=== PATIENT | female | born 1950 | race Caucasian/White ===

== ENCOUNTER → 2023-07-04 09:24 | Outpatient (REF) | payer MEDICARE, OTHER, SELFPAY ==
[2023-07-04 10:13] LABS: % Basophils 0.4 % (0-2); % Eosinophils 2.5 % (0-6); % Immature Granulocytes 0.3 % (0-0.5); % Lymphocytes 28.5 % (20.5-51.1); % Monocytes 6.4 % (1.7-9.3); % Neutrophils 61.9 % (42.2-75.2); Absolute Eosinophils 0.2 10^3/uL (0-0.7); Absolute Monocytes 0.4 10^3/uL (0.1-0.6); Absolute Neutrophils 4.2 10^3/uL (1.4-6.5); Hematocrit 40.7 % (37.0-47.0); Hemoglobin 13.8 g/dL (12.0-16.0); Mean Corp Hgb Conc. 33.9 g/dL (33.0-37.0); Mean Corpuscular Hgb 31.2 pg (27.0-31.0); Mean Corpuscular Volume 92.1 fL (81.0-99.0); Mean Platelet Volume 9.1 fL (7.4-10.4); Nucleated Red Blood Cells % 0 %; Platelet Count 354 10^3/uL (130-400); Red Blood Cell Count 4.42 10^6/uL (4.20-5.40); Red Cell Dist. Width 14.5 % (11.5-14.5); White Blood Cell Count 6.8 10^3/uL (4.8-10.8)
[2023-07-04 10:26] LABS: Urine Albumin Negative (Neg - Trace); Urine Bilirubin Negative (Negative); Urine Character Clear (Clear); Urine Color Yellow; Urine Glucose Negative (Negative); Urine Ketone Negative (Negative); Urine Leukocyte Negative (Negative); Urine Nitrite Negative (Negative); Urine Occult Blood Negative (Negative); Urine Specific Gravity 1.005 (<1.030); Urine Urobilinogen Negative (Neg - 1+)
[2023-07-04 11:04] LABS: Microalbumin, Random Urine <0.6 mg/dl (0.6-1.7)
[2023-07-04 11:54] LABS: ALT (SGPT) 23 U/L (0-35); AST (SGOT) 33 U/L (14-36); Albumin 4.6 g/dl (3.5-5.0); Alkaline Phosphatase 85 U/L (38-126); Blood Urea Nitrogen 14 mg/dl (7-17); Calcium 9.5 mg/dl (8.4-10.2); Carbon Dioxide 29 mmol/L (22-30); Chloride 105 mmol/L (98-107); Glucose 112 mg/dl (70-99); HDL Cholesterol 93 mg/dl; LDL Cholesterol, Calculated 197 mg/dl; Magnesium 2.5 mg/dl (1.6-2.3); Phosphorus 4.2 mg/dl (2.5-4.5); Potassium 4.6 mmol/L (3.5-5.1); Sodium 138 mmol/L (135-145); Total Bilirubin 0.7 mg/dl (0.2-1.3); Total Cholesterol 311 mg/dl (50-199); Total Protein 7.3 g/dl (6.3-8.2); Triglyceride 109 mg/dl (10-149); Uric Acid 5.5 mg/dl (2.5-6.2); Very Low Density Lipoprotein 21 mg/dl (0-30); eGFR > 60.00
[2023-07-04 12:10] LABS: Free T4 1.71 ng/dl (0.78-2.19)
[2023-07-04 12:24] LABS: TSH 1.84 uIU/ml (0.47-4.68)
[2023-07-04 12:25] LABS: Vitamin D, 25-OH*** 26.3 ng/mL (30-80)
[2023-07-04 12:31] LABS: Glycohemoglobin (HgbA1c) 6.4 % (4.0-5.6)
[2023-07-04 13:00] LABS: Folate > 20.0 ng/ml (2.76-20); Vitamin B12 504 pg/ml (239-931)
[2023-07-06 01:36] LABS: Fructosamine 288 umol/L (205-285)
== END ==
LOC: REG 09:24
PROVIDERS: ATTENDING PHYSICIAN Internal Medicine Endocrinology, Diabetes & Metabolism; FAMILY PHYSICIAN Family Medicine
DX: E11.65 Type 2 diabetes mellitus with hyperglycemia (principal); E78.2 Mixed hyperlipidemia; I10 Essential (primary) hypertension; E55.9 Vitamin D deficiency, unspecified; D17.9 Benign lipomatous neoplasm, unspecified
CPT/HCPCS: 36415; 80053; 80061; 81003; 82043; 82306; 82570; 82607; 82746; 82985; 83036; 83735; 84100; 84436; 84439; 84443; 84550; 85025

== ENCOUNTER → 2024-02-08 07:56 | Outpatient (REF) | payer MEDICARE, OTHER, SELFPAY ==
[2024-02-08 09:26] LABS: % Basophils 0.3 % (0-2); % Eosinophils 3.8 % (0-6); % Immature Granulocytes 0.2 % (0-0.5); % Lymphocytes 33.6 % (20.5-51.1); % Monocytes 6.9 % (1.7-9.3); % Neutrophils 55.2 % (42.2-75.2); Absolute Eosinophils 0.2 10^3/uL (0-0.7); Absolute Monocytes 0.4 10^3/uL (0.1-0.6); Absolute Neutrophils 3.4 10^3/uL (1.4-6.5); Hematocrit 37.9 % (37.0-47.0); Hemoglobin 12.5 g/dL (12.0-16.0); Mean Corpuscular Hgb 29.8 pg (27.0-31.0); Mean Corpuscular Volume 90.2 fL (81.0-99.0); Mean Platelet Volume 9.5 fL (7.4-10.4); Nucleated Red Blood Cells % 0 %; Platelet Count 307 10^3/uL (130-400); Red Cell Dist. Width 13.8 % (11.5-14.5); White Blood Cell Count 6.1 10^3/uL (4.8-10.8)
[2024-02-08 09:50] LABS: Urine Albumin Negative (Neg - Trace); Urine Bilirubin Negative (Negative); Urine Character Clear (Clear); Urine Color Straw; Urine Glucose Negative (Negative); Urine Ketone Negative (Negative); Urine Leukocyte Negative (Negative); Urine Nitrite Negative (Negative); Urine Occult Blood Negative (Negative); Urine Specific Gravity 1.005 (<1.030); Urine Urobilinogen Negative (Neg - 1+); Urine pH 6.5 (5.0-9.0)
[2024-02-08 10:07] LABS: ALT (SGPT) 20 U/L (0-35); AST (SGOT) 32 U/L (14-36); Albumin 4.5 g/dl (3.5-5.0); Alkaline Phosphatase 69 U/L (38-126); Blood Urea Nitrogen 18 mg/dl (7-17); Calcium 9.5 mg/dl (8.4-10.2); Carbon Dioxide 28 mmol/L (22-30); Chloride 104 mmol/L (98-107); Free T4 1.37 ng/dl (0.78-2.19); Glucose 104 mg/dl (70-99); HDL Cholesterol 100 mg/dl; LDL Cholesterol, Calculated 66 mg/dl; Magnesium 2.4 mg/dl (1.6-2.3); Phosphorus 3.9 mg/dl (2.5-4.5); Sodium 143 mmol/L (135-145); Total Bilirubin 0.3 mg/dl (0.2-1.3); Total Cholesterol 180 mg/dl (50-199); Total Protein 6.9 g/dl (6.3-8.2); Total Thyroxine 9.66 ug/dl (5.5-11.0); Triglyceride 70 mg/dl (10-149); Uric Acid 3.2 mg/dl (2.5-6.2); Very Low Density Lipoprotein 14 mg/dl (0-30); Vitamin D, 25-OH*** 42.1 ng/mL (30-80); eGFR > 60.00
[2024-02-08 10:13] LABS: TSH 1.08 uIU/ml (0.47-4.68)
[2024-02-08 10:33] LABS: Microalbumin, Random Urine <0.6 mg/dl (0.6-1.7)
[2024-02-08 10:56] LABS: Folate > 20.0 ng/ml (2.76-20); Vitamin B12 451 pg/ml (239-931)
[2024-02-08 11:05] LABS: Glycohemoglobin (HgbA1c) 6.2 % (4.0-5.6)
[2024-02-09 14:55] LABS: Intact PTH 34.8 pg/ml (13.6-85.8)
[2024-02-11 06:49] LABS: Fructosamine 259 umol/L (205-285)
== END ==
LOC: REG 07:56
PROVIDERS: ATTENDING PHYSICIAN Internal Medicine Endocrinology, Diabetes & Metabolism; FAMILY PHYSICIAN Family Medicine
DX: E55.9 Vitamin D deficiency, unspecified (principal); D51.9 Vitamin B12 deficiency anemia, unspecified; E78.2 Mixed hyperlipidemia; E06.3 Autoimmune thyroiditis; E11.65 Type 2 diabetes mellitus with hyperglycemia; E23.0 Hypopituitarism; E21.0 Primary hyperparathyroidism
CPT/HCPCS: 36415; 80053; 80061; 81003; 82043; 82306; 82570; 82607; 82746; 82985; 83036; 83735; 83970; 84100; 84436; 84439; 84443; 84550; 85025

== ENCOUNTER → 2024-02-20 13:00 | Outpatient (REF) | payer MEDICARE, OTHER, SELFPAY | LOC: HWRAD 13:00 | PROVIDERS: ATTENDING PHYSICIAN Internal Medicine Endocrinology, Diabetes & Metabolism; FAMILY PHYSICIAN Family Medicine | DX: E78.5 Hyperlipidemia, unspecified (principal) | CPT/HCPCS: 75571 ==

== ENCOUNTER → 2024-08-12 08:53 | Outpatient (REF) | payer MEDICARE, OTHER, SELFPAY ==
[2024-08-12 10:04] LABS: % Basophils 0.2 % (0-2); % Eosinophils 0.6 % (0-6); % Immature Granulocytes 0.4 % (0-0.5); % Lymphocytes 17.4 % (20.5-51.1); % Monocytes 6.9 % (1.7-9.3); % Neutrophils 74.5 % (42.2-75.2); Absolute Eosinophils 0.1 10^3/uL (0-0.7); Absolute Lymphocytes 1.6 10^3/uL (1.2-3.4); Absolute Monocytes 0.6 10^3/uL (0.1-0.6); Absolute Neutrophils 6.7 10^3/uL (1.4-6.5); Mean Corp Hgb Conc. 33.3 g/dL (33.0-37.0); Mean Corpuscular Hgb 30.8 pg (27.0-31.0); Mean Corpuscular Volume 92.5 fL (81.0-99.0); Mean Platelet Volume 9.3 fL (7.4-10.4); Nucleated Red Blood Cells % 0 %; Platelet Count 310 10^3/uL (130-400); Red Blood Cell Count 4.54 10^6/uL (4.20-5.40); Red Cell Dist. Width 14.2 % (11.5-14.5)
[2024-08-12 10:46] LABS: ALT (SGPT) 18 U/L (0-35); AST (SGOT) 26 U/L (14-36); Albumin 4.3 g/dl (3.5-5.0); Alkaline Phosphatase 75 U/L (38-126); Blood Urea Nitrogen 13 mg/dl (7-17); Calcium 9.7 mg/dl (8.4-10.2); Carbon Dioxide 28 mmol/L (22-30); Chloride 104 mmol/L (98-107); Glucose 125 mg/dl (70-99); Magnesium 2.1 mg/dl (1.6-2.3); Phosphorus 3.1 mg/dl (2.5-4.5); Potassium 4.2 mmol/L (3.5-5.1); Sodium 141 mmol/L (135-145); Total Bilirubin 0.7 mg/dl (0.2-1.3); Total Cholesterol 251 mg/dl (50-199); Total Protein 6.8 g/dl (6.3-8.2); Triglyceride 93 mg/dl (10-149); Uric Acid 3.9 mg/dl (2.5-6.2); Very Low Density Lipoprotein 18 mg/dl (0-30); eGFR > 60.00
[2024-08-12 10:58] LABS: Free T4 1.53 ng/dl (0.78-2.19); Vitamin D, 25-OH*** 25.1 ng/mL (30-80)
[2024-08-12 11:11] LABS: TSH 1.73 uIU/ml (0.47-4.68)
[2024-08-12 12:01] LABS: Glycohemoglobin (HgbA1c) 6.3 % (4.0-5.6)
[2024-08-12 12:15] LABS: Folate 17.1 ng/ml (2.76-20); Vitamin B12 357 pg/ml (239-931)
[2024-08-12 12:31] LABS: HDL Cholesterol 92 mg/dl; LDL Cholesterol, Calculated 141 mg/dl
== END ==
LOC: REG 08:53
PROVIDERS: ATTENDING PHYSICIAN Internal Medicine Endocrinology, Diabetes & Metabolism; FAMILY PHYSICIAN Family Medicine
DX: E23.0 Hypopituitarism (principal); E78.2 Mixed hyperlipidemia; E11.65 Type 2 diabetes mellitus with hyperglycemia; D51.9 Vitamin B12 deficiency anemia, unspecified; E21.0 Primary hyperparathyroidism; E55.9 Vitamin D deficiency, unspecified
CPT/HCPCS: 36415; 80053; 80061; 82306; 82607; 82746; 83036; 83735; 84100; 84436; 84439; 84443; 84550; 85025

== ENCOUNTER → 2025-01-19 14:25 | Outpatient (REF) | payer MEDICARE, OTHER, SELFPAY | LOC: RAD 14:25 | PROVIDERS: ATTENDING PHYSICIAN Family Medicine | DX: S67.191A Crushing injury of left index finger, initial encounter (principal) | CPT/HCPCS: 73140 ==

== ENCOUNTER → 2025-03-12 10:39 | Outpatient (REF) | payer MEDICARE, OTHER, SELFPAY ==
[2025-03-12 12:11] LABS: Hematocrit 41.7 % (37.0-47.0); Hemoglobin 13.6 g/dL (12.0-16.0); Mean Corp Hgb Conc. 32.6 g/dL (33.0-37.0); Mean Corpuscular Volume 93.7 fL (81.0-99.0); Nucleated Red Blood Cells % 0 %; Platelet Count 376 10^3/uL (130-400); Red Cell Dist. Width 13.7 % (11.5-14.5)
[2025-03-12 12:19] LABS: Urine Character Clear (Clear)
[2025-03-12 12:56] LABS: Vitamin D, 25-OH*** 30.3 ng/mL (30-80)
[2025-03-12 12:57] LABS: ALT (SGPT) 29 U/L (0-35); AST (SGOT) 33 U/L (14-36); Albumin 4.8 g/dl (3.5-5.0); Alkaline Phosphatase 76 U/L (38-126); Blood Urea Nitrogen 16 mg/dl (7-17); Calcium 9.5 mg/dl (8.4-10.2); Carbon Dioxide 29 mmol/L (22-30); Chloride 103 mmol/L (98-107); Glucose 111 mg/dl (70-99); Magnesium 2.2 mg/dl (1.6-2.3); Potassium 4.1 mmol/L (3.5-5.1); Sodium 137 mmol/L (135-145); Total Protein 7.6 g/dl (6.3-8.2); Uric Acid 3.9 mg/dl (2.5-6.2); Very Low Density Lipoprotein 15 mg/dl (0-30); eGFR > 60.00
[2025-03-12 13:05] LABS: TSH 1.68 uIU/ml (0.47-4.68)
[2025-03-12 13:06] LABS: HDL Cholesterol 104 mg/dl; LDL Cholesterol, Calculated 90 mg/dl
[2025-03-12 13:41] LABS: Folate 17.8 ng/ml (2.76-20); Vitamin B12 424 pg/ml (239-931)
[2025-03-12 14:10] LABS: Glycohemoglobin (HgbA1c) 6.2 % (4.0-5.9)
== END ==
LOC: REG 10:39
PROVIDERS: ATTENDING PHYSICIAN Internal Medicine Endocrinology, Diabetes & Metabolism; FAMILY PHYSICIAN Family Medicine
DX: E89.0 Postprocedural hypothyroidism (principal); E06.3 Autoimmune thyroiditis; E78.5 Hyperlipidemia, unspecified; E21.0 Primary hyperparathyroidism; D51.9 Vitamin B12 deficiency anemia, unspecified; E55.9 Vitamin D deficiency, unspecified; R73.9 Hyperglycemia, unspecified; F10.10 Alcohol abuse, uncomplicated
CPT/HCPCS: 36415; 80053; 80061; 81003; 82306; 82607; 82746; 82985; 83036; 83735; 84100; 84436; 84439; 84443; 84550; 85025